=== PATIENT | male | born 2000 | race Caucasian/White ===

== ENCOUNTER → 2018-02-09 | Outpatient (CLI) | payer OTHER ==
[~2018-02-09] MED LIST: CYCL10 PO; IBUP600 PO; TRAM50 PO
[2018-02-11 22:09] LABS: CHLAMYDIA TRACHOMATIS, NAA Positive (Negative); NEISSERIA GONORRHOEAE, NAA Negative (Negative)
== END | disposition home or self-care (01) ==
LOC: LAB SHORT 13:18 → LAB EV 13:18
PROVIDERS: Family Medicine
DX: N34.2 Other urethritis (principal)
CPT/HCPCS: 87491; 87591

== ENCOUNTER 2020-04-16 18:06 | Emergency (ER) | payer OTHER ==
[~2020-04-16] VITALS: Ht 172.7 cm; Wt 77.1 kg
== END 2020-04-16 19:49 | disposition home or self-care (01) ==
LOC: ER 18:06
DX: S61.213A Laceration without foreign body of left middle finger without damage to nail, initial encounter (principal); Z23 Encounter for immunization; W29.3XXA Contact with powered garden and outdoor hand tools and machinery, initial encounter
CPT/HCPCS: 12001; 90471; 90714; 99282-25

== ENCOUNTER 2022-06-08 02:33 | Emergency (ER) | payer OTHER ==
[~2022-06-08] VITALS: Ht 172.7 cm; Wt 77.1 kg
== END 2022-06-08 06:25 | disposition home or self-care (01) ==
LOC: ER 02:33
DX: S52.611A Displaced fracture of right ulna styloid process, initial encounter for closed fracture (principal); X58.XXXA Exposure to other specified factors, initial encounter; Y93.72 Activity, wrestling
CPT/HCPCS: 73110; J1885